=== PATIENT | male | born 1990 ===

== ENCOUNTER 2017-03-06 20:51 | Emergency (ER) | payer SELFPAY ==
[2017-03-06 21:46] VITALS: RESP 16
[2017-03-06] MEDS ORDERED: Sodium Chloride 0.9% 1,000 ML IV STA (22:20)
--- NOTE | 2017-03-06 22:23 | ED PDOC ---
HPI: Abdomen Time Seen by Provider: 03/06/17 21:50 Chief Complaint (Nursing): Male Genitourinary Chief Complaint (Provider): abdominal pain History Per: Patient History/Exam Limitations: no limitations Onset/Duration Of Symptoms: Days (2 weeks) Current Symptoms Are (Timing): Still Present Location Of Pain/Discomfort: LUQ, LLQ Quality Of Discomfort: "Pain" Additional History Per: Patient Additional Complaint(s): 26 y/o male presents for eval of left upper and left lower abdominal pain x 2 weeks. Patient is taking Percocet (nonprescribed) with improvement of pain. Denies fever, nausea/vomiting, changes in bowel movements, dysuria, hematuria. Past Medical History Reviewed: Historical Data, Nursing Documentation, Vital Signs Vital Signs: Last Vital Signs Temp 99.0 F 03/06/17 21:43 Pulse 84 03/06/17 21:43 Resp 16 03/06/17 21:43 BP 124/74 03/06/17 21:43 Pulse Ox 100 03/06/17 22:23 - Medical History PMH: No Chronic Diseases - Surgical History Surgical History: No Surg Hx - Family History Family History: States: Unknown Family Hx - Immunization History Hx Tetanus Toxoid Vaccination: No Hx Influenza Vaccination: No Hx Pneumococcal Vaccination: No - Home Medications Home Medications: Ambulatory Orders Medication Instructions Recorded Ibuprofen 600 mg PO Q6 #20 tab 08/17/14 Naproxen [Naprosyn] 500 mg PO Q12 PRN #14 tablet 03/07/17 - Allergies Allergies/Adverse Reactions: Allergies Allergy/AdvReac Type Severity Reaction Status Date / Time No Known Allergies Allergy Verified 03/06/17 21:43 Review of Systems ROS Statement: Except As Marked, All Systems Reviewed And Found Negative Gastrointestinal: Positive for: Abdominal Pain Physical Exam - Reviewed Nursing Documentation Reviewed: Yes Vital Signs Reviewed: Yes - Physical Exam Appears: Positive for: Well, Non-toxic, No Acute Distress Head Exam: Positive for: ATRAUMATIC, NORMAL INSPECTION, NORMOCEPHALIC Skin: Positive for: Normal Color Eye Exam: Positive for: Normal appearance ENT: Positive for: Normal ENT Inspection Cardiovascular/Chest: Positive for: Regular Rate, Rhythm Respiratory: Positive for: Normal Breath Sounds Gastrointestinal/Abdominal: Positive for: Bowel Sounds, Soft, Tenderness (LUQ, LLQ). Negative for: Distended, Guarding, Rebound Back: Positive for: Normal Inspection Extremity: Positive for: Normal ROM Neurologic/Psych: Positive for: Alert, Oriented - Laboratory Results Result Diagrams: 03/06/17 22:40 03/06/17 22:41 - ECG O2 Sat by Pulse Oximetry: 100 - Progress ED Course And Treament: labs, urine. IV fluids, IV toradol EXAM: CT Abdomen and Pelvis Without Intravenous Contrast CLINICAL HISTORY: The patient is a 26 years male; Pain; Abdominal pain; Flank; Left; Additional info: Left abdominal pain 03/06/2017 11:05 PM TECHNIQUE: Axial computed tomography images of the abdomen and pelvis without intravenous contrast. This CT exam was performed using one or more of the following dose reduction techniques : automated exposure control, adjustment of the mA and/or kV according to patient size, and/ or use of iterative reconstruction technique. Coronal and sagittal reformatted images were created and reviewed. COMPARISON: No relevant prior studies available. FINDINGS: Lower thorax: Small hiatal hernia. ABDOMEN: Liver: Unremarkable. Gallbladder and bile ducts: Unremarkable. No calcified stones. No ductal dilation. Pancreas: Unremarkable. No ductal dilation. Spleen: Unremarkable. No splenomegaly. Adrenals: Unremarkable. No mass. Kidneys and ureters: Punctate right nephrolithiasis. No hydronephrosis. Stomach and bowel: Lack of oral contrast opacification limits evaluation of the bowel. Stool is present throughout the colon and rectum, correlate with history of constipation. Appendix: No findings to suggest acute appendicitis. PELVIS: Bladder: Urinary bladder is partially contracted with apparent wall thickening, probably exaggerated by under distention. Correlate for possible cystitis. Reproductive: Unremarkable as visualized. ABDOMEN and PELVIS: Intraperitoneal space: Unremarkable. No free air. No significant fluid collection. Bones/joints: Tiny sclerotic foci noted in the right femur. No acute fracture. No dislocation. Soft tissues: Small fat containing umbilical hernia. Vasculature: Unremarkable. No abdominal aortic aneurysm. Lymph nodes: Unremarkable. No enlarged lymph nodes. Other findings: There small left hypodensity that cannot be accurately characterized on the current examination. IMPRESSION: 1. Punctate right nephrolithiasis. No hydronephrosis. 2. Urinary bladder is partially contracted with apparent wall thickening, probably exaggerated by under distention. Correlate for possible cystitis. Thank you for allowing us to participate in the care of your patient. Patient educated on findings, discharged with rx Naproxen. Advised follow up PMD 2-3 days. Return to ED for worsening/concerning symptoms. Disposition - Clinical Impression Clinical Impression: Abdominal pain - Patient ED Disposition Is Patient to be Admitted: No Counseled Patient/Family Regarding: Studies Performed, Diagnosis, Need For Followup, Rx Given - Disposition Referrals: [facility] [Outside] Disposition: Routine/Home Disposition Time: 00:09 Condition: IMPROVED Prescriptions: Naproxen [Naprosyn] 500 mg PO Q12 PRN #14 tablet PRN Reason: Pain, Moderate (4-7) Instructions: Abdominal Pain (ED)
[2017-03-06 22:48] LABS: RBC URINE < 1 /hpf (0-3); URINE BILIRUBIN NEGATIVE (NEGATIVE); URINE BLOOD NEGATIVE (NEGATIVE); URINE COLOR YELLOW (YELLOW); URINE GLUCOSE (UA) NEG (Normal); URINE KETONE NEGATIVE (NEGATIVE); URINE LEUKOCYTE ESTERASE NEG Leu/uL (Negative); URINE PROTEIN NEGATIVE (NEGATIVE); URINE UROBILINOGEN 0.2-1.0 mg/dL (0.2-1.0); WBC URINE < 1 /hpf (0-5)
[2017-03-06 22:49] LABS: BASO # 0.1 K/uL (0.0-0.2); BASO % 1.1 % (0.0-2.0); EOS # 0.4 K/uL (0.0-0.7); EOS % 3.6 % (0.0-4.0); HEMATOCRIT 45.9 % (35.0-51.0); LYMPH # 2.9 K/uL (1.0-4.3); LYMPH % 27.3 % (20.0-40.0); MEAN CELL VOLUME 87.7 fl (80.0-94.0); MEAN CORPUSCULAR HEMOGLOBIN 29.2 pg (27.0-31.0); MEAN CORPUSCULAR HGB CONC 33.3 g/dL (33.0-37.0); MEAN PLATELET VOLUME 8.8 fl (7.2-11.7); MONO % 9.9 % (0.0-10.0); NEUT # 6.1 K/uL (1.8-7.0); NEUT % 58.1 % (50.0-75.0); RED CELL DISTRIBUTION WIDTH 13.1 % (11.5-14.5); WHITE BLOOD COUNT 10.6 K/uL (4.8-10.8)
[2017-03-06 22:59] LABS: ALB/GLOB RATIO 1.1 (1.0-2.1); ALKALINE PHOSPHATASE 48 U/L (38-126); ALT/SGPT 57 U/L (21-72); AST/SGOT 31 U/L (17-59); BILIRUBIN,TOTAL 0.4 mg/dl (0.2-1.3); BLOOD UREA NITROGEN 20 mg/dl (9-20); CALCIUM 9.6 mg/dL (8.4-10.2); CARBON DIOXIDE 25 mmol/L (22-30); CHLORIDE 104 mmol/L (98-107); GFR AFRICAN-AMERICAN > 60; GLUCOSE,RANDOM 82 mg/dL (75-110); LIPASE 82 U/L (23-300); POTASSIUM 3.9 MMOL/L (3.6-5.0); SODIUM 140 mmol/l (132-148)
[2017-03-07 00:40] VITALS: BP 118/78; PULSE 86; TEMP 98.4; O2SAT 98
--- NOTE | 2017-03-07 17:16 | CT ---
PROCEDURE: CT Abdomen and pelvis dated 03/06/2017 HISTORY: left abdominal pain COMPARISON: None. TECHNIQUE: Contiguous axial images of the abdomen and pelvis. No oral or intravenous contrast t given. Coronal and Sagittal reformats generated. Radiation dose: Total exam DLP = 1071.68 mGy-cm. This CT exam was performed using one or more of the following dose reduction techniques: Automated exposure control, adjustment of the mA and/or kV according to patient size, and/or use of iterative reconstruction technique. FINDINGS: LOWER THORAX: Minor atelectasis/scarring changes both lung bases. No effusion or basilar pneumothorax. LIVER: The liver is enlarged measuring nearly 20 cm in CC dimension. No obvious hepatic mass or collection. GALLBLADDER AND BILE DUCTS: Gallbladder is physiologically distended. No evidence of intraluminal gallbladder calculi. PANCREAS: Unremarkable. No mass. No ductal dilatation. SPLEEN: Unremarkable. No splenomegaly. ADRENALS: Unremarkable. KIDNEYS AND URETERS: Punctate densities seen in the mid pole right kidney. . Findings likely represent tiny nonobstructing calculi. No evidence hydronephrosis. BLADDER: Urinary bladder is incompletely distended which may account for slight thick-walled appearance. Muscular hypertrophy may contribute. Cystitis not excluded. . No evidence of intraluminal urinary bladder calculi. REPRODUCTIVE: Unremarkable. APPENDIX: Appendix is unremarkable. BOWEL: Evaluation of the bowel is somewhat limited due to the lack of oral contrast material. Stomach is incompletely distended which may account for thick-walled appearance. Gastritis not excluded. Visualized loops of small bowel exhibit normal contour and caliber. No evidence acute mechanical small bowel obstruction. Stool and air seen throughout the colon. No definitive radiographic evidence mural wall thickening. PERITONEUM: Unremarkable. No fluid collection. No free air. LYMPH NODES: Unremarkable. No enlarged lymph nodes. VASCULATURE: Unremarkable. No aortic aneurysm. BONES: Osseous structures intact. OTHER FINDINGS: None. IMPRESSION: Punctate densities of midpole right kidney likely representing tiny nonobstructing calculi. No evidence of hydronephrosis. Urinary bladder is incompletely distended which may account for slight thick-walled appearance. Muscular hypertrophy may contribute. Cystitis not excluded. . No evidence of intraluminal urinary bladder calculi. See above discussion for additional findings and details as above
== END 2017-03-07 00:40 | disposition home or self-care (01) ==
LOC: H.ER 20:51
DX: N20.0 Calculus of kidney (principal); R10.9 Unspecified abdominal pain
CPT/HCPCS: 74176; 80053; 81003; 83690; 85025; 87086; 96360; 99284; J1885; J7040